=== PATIENT | female | born 1945 | race Caucasian/White ===

== ENCOUNTER 2018-03-21 05:49 | Day surgery (SDC) | payer MEDICARE ==
[~2018-03-21] VITALS: Ht 157.5 cm; Wt 62.1 kg
[~2018-03-21 05:49] MED LIST: MULT1TAB10 PO; PROBCAP4 PO
[2018-03-21] MEDS ORDERED: LR 1,000 ML IV ONE (06:00)
[2018-03-21] MEDS ORDERED: BUPIVACAINE/EPIN 0.25% 30 ML VIAL As Ordered ONE (07:15)
[2018-03-21] MEDS ORDERED: MIDAZOLAM INJ 2 MG/2 ML VIAL (J2250) As Ordered ONE (07:16)
[2018-03-21] MEDS ORDERED: LIDOCAINE 2% INJ 100 MG/5 ML SDV (FOR ANES.) As Ordered ONE (07:16)
[2018-03-21] MEDS ORDERED: PROPOFOL 200 MG/20 ML VIAL As Ordered ONE (07:16)
[2018-03-21] MEDS ORDERED: fentaNYL 100 MCG/2 ML INJECTION (J3010) As Ordered ONE (07:17)
--- NOTE | 2018-03-21 08:33 | RO ---
DATE OF PROCEDURE: 03/21/2018 PREOPERATIVE DIAGNOSIS: Left arm melanoma (malignant melanoma). POSTOPERATIVE DIAGNOSIS: Left arm melanoma (malignant melanoma). PROCEDURE: Wide excision of malignant melanoma. SURGEON: Frandy Iqbal Jr., MD FOOD AND BEVERAGE DIRECTOR: ANESTHESIA: General endotracheal anesthesia. BRIEF PROCEDURE SUMMARY: The patient was brought to the operating room was given IV sedation. After adequate IV sedation, the patient was prepped and draped in the usual sterile fashion. Next, local was infiltrated around the lesion itself. The skin had been marked giving adequate margins. This was an in situ lesion, thus 5 mm margins outside of the previous biopsy site, which was a 1 cm lesion, was performed, giving us a 2 cm wide area of excision. This resulted in a 10 cm long incision by a 2 cm wide defect. The skin incision was made with skin knife. Electrocautery was used cut through dermis, underlying subcutaneous tissue. The tissue was removed in its entirety using electrocautery and good hemostasis was achieved. Dermis was brought together with #3-0 Vicryl and #4-0 Vicryl was used to approximate the skin. Steri-Strips and dry sterile dressing was applied. The patient was awakened from the sedation brought to recovery room awake, alert, hemodynamically stable. Sponge and needle counts correct times two.
[2018-03-21 09:00] VITALS: BP 110/60
[2018-03-21] MEDS ORDERED: ONDANSETRON 4MG/2ML VIAL (J2405) IV PRN (09:15)
[2018-03-21] MEDS ORDERED: fentaNYL 100 MCG/2 ML INJECTION (J3010) IV PRN (09:15)
[2018-03-21] MEDS ORDERED: LR 1,000 ML IV SCH (09:15)
[2018-03-21] MEDS ORDERED: NORCO, ANEXSIA 5/325MG TABLET (HYDROcodone/ACETAMINOPHEN) PO PRN (09:15)
== END 2018-03-21 09:10 | disposition home or self-care (01) ==
LOC: M SDC 05:49
PROVIDERS: ATTEND Surgery
DX: C43.62 Malignant melanoma of left upper limb, including shoulder (principal); K58.9 Irritable bowel syndrome, unspecified; M81.0 Age-related osteoporosis without current pathological fracture; E04.1 Nontoxic single thyroid nodule; Z79.899 Other long term (current) drug therapy; Z87.891 Personal history of nicotine dependence; Z88.0 Allergy status to penicillin; Z88.2 Allergy status to sulfonamides; Z88.8 Allergy status to other drugs, medicaments and biological substances
CPT/HCPCS: 11606; 88305; J2250; J3010

== ENCOUNTER → 2019-10-06 | Outpatient (CLI) | payer MEDICARE ==
[~2019-10-06] MED LIST changes: +CVS1CAP2 PO; +CYAN1000VL PO; +HYDR12.55 PO; +IBAN150T6 PO; +K-TA10TA PO; +MULTCAP PO; +TRIA0.027 EXT
== END ==
LOC: M LABSMTC 09:47
PROVIDERS: ATTEND Anesthesiology
DX: Z01.812 Encounter for preprocedural laboratory examination (principal); Z20.828 Contact with and (suspected) exposure to other viral communicable diseases
CPT/HCPCS: C9803; U0003

== ENCOUNTER 2019-10-11 05:59 | Day surgery (SDC) | payer MEDICARE ==
[~2019-10-11] VITALS: Ht 157.5 cm; Wt 66.7 kg
[~2019-10-11 05:59] MED LIST changes: -CVS1CAP2 PO; -CYAN1000VL PO; -HYDR12.55 PO; -IBAN150T6 PO; -K-TA10TA PO; -MULTCAP PO; -TRIA0.027 EXT
[2019-10-11] MEDS ORDERED: LR 1,000 ML IV ONE (06:00)
[2019-10-11] MEDS ORDERED: TRIA0.027 EXT (06:24)
[2019-10-11] MEDS ORDERED: K-TA10TA PO (06:24)
[2019-10-11] MEDS ORDERED: MULTCAP PO (06:24)
[2019-10-11] MEDS ORDERED: IBAN150T6 PO (06:24)
[2019-10-11] MEDS ORDERED: CVS1CAP2 PO (06:24)
[2019-10-11] MEDS ORDERED: HYDR12.55 PO (06:24)
[2019-10-11] MEDS ORDERED: CYAN1000VL PO (06:24)
[2019-10-11] MEDS ORDERED: POVIDONE-IODINE 5% OPHTH PREP SOL 30ML As Ordered ONE (06:32)
[2019-10-11] MEDS ORDERED: BALANCED SALT IRRIGATION SOLUTION 500ML BAG (FOR OR EYE MACHINE) As Ordered ONE (06:33)
[2019-10-11] MEDS ORDERED: CEFUROXIME 1MG/0.1ML INTRACAMERAL INJ As Ordered ONE (06:33)
[2019-10-11] MEDS ORDERED: DUOVISC (0.50ML VISCOAT/0.55ML PROVISC) OPHTH KIT As Ordered ONE (06:33)
[2019-10-11] MEDS ORDERED: ACETYLCHOLINE OPHTH SOLN 1% 2ML (MIOCHOL-E) As Ordered ONE (06:36)
[2019-10-11] MEDS ORDERED: BSS IRR 500ML/OMIDRIA 4ML IRR BAG (OR ONLY) (J1097 PER ML) As Ordered ONE (06:46)
[2019-10-11] MEDS ORDERED: TROPICAMIDE 1% OPHTH SOLN 2ML OD ONE (07:00)
[2019-10-11] MEDS ORDERED: PHENYLEPHRINE 2.5% OPHTH SOL 2ML OD ONE (07:00)
[2019-10-11] MEDS ORDERED: PROPARACAINE 0.5% OPHTH SOL 15ML OD ONE (07:00)
[2019-10-11 08:30] VITALS: BP 132/76
[2019-10-11] MEDS ORDERED: fentaNYL 250 MCG/5 ML INJECTION (J3010) As Ordered ONE (09:32)
[2019-10-11] MEDS ORDERED: MIDAZOLAM INJ 2MG/2ML VIAL (J2250 PER 1MG) As Ordered ONE (09:32)
== END 2019-10-11 08:51 | disposition home or self-care (01) ==
LOC: M SDC 05:59
PROVIDERS: ATTEND Ophthalmology
DX: H25.11 Age-related nuclear cataract, right eye (principal); K57.92 Diverticulitis of intestine, part unspecified, without perforation or abscess without bleeding; K58.8 Other irritable bowel syndrome; Z79.899 Other long term (current) drug therapy; Z88.1 Allergy status to other antibiotic agents; Z88.2 Allergy status to sulfonamides; Z88.0 Allergy status to penicillin; Z87.891 Personal history of nicotine dependence; Z91.013 Allergy to seafood; Z91.041 Radiographic dye allergy status
CPT/HCPCS: 66982; 92015; J1097; J2250; J3010; L8699; V2632

== ENCOUNTER 2020-05-17 20:34 | Inpatient (IN) | payer MEDICARE ==
[~2020-05-17] VITALS: Ht 154.9 cm; Wt 63.9 kg
[~2020-05-17 20:34] MED LIST changes: +CVS1CAP2 PO; +CYAN1000VL PO; +HYDR12.55 PO; +IBAN150T6 PO; +K-TA10TA PO; +MULTCAP PO; +TRIA0.027 EXT
[2020-05-17] MEDS ORDERED: METO37.5 PO (20:47)
[2020-05-17] MEDS ORDERED: CLIN150C15 PO (20:47)
[2020-05-17] MEDS ORDERED: REST0.05 OU (20:47)
[2020-05-17] MEDS ORDERED: MORPHINE 2 MG/ML 1ML VIAL (J2270) IV ONE (21:05)
[2020-05-17] MEDS ORDERED: ONDANSETRON 4MG/2ML VIAL IV ONE (21:05)
[2020-05-17] MEDS ORDERED: NS 1,000 ML IV SCH (21:05)
[2020-05-17 21:48] LABS: BASO % 0.5 % (0.0-1.0); EOS # 0.1 10^3/uL (0.0-0.5); EOS % 1.4 % (0.0-3.0); HEMATOCRIT 43.8 % (36.0-47.0); HEMOGLOBIN 14.6 g/dl (12.0-15.5); LYMPH # 1.5 10^3/uL (1.5-5.0); LYMPH % 20.7 % (24.0-44.0); MEAN CORPUSCULAR HEMOGLOBIN 29.4 pg (27.0-33.0); MEAN CORPUSCULAR HGB CONC 33.3 g/dl (32.0-36.5); MEAN CORPUSCULAR VOLUME 88.3 fl (80.0-96.0); MONO # 0.9 10^3/uL (0.0-0.8); MONO % 11.6 % (2.0-8.0); NEUTROPHILS # 4.8 10^3/uL (1.5-8.5); NEUTROPHILS % 65.5 % (36.0-66.0); PLATELET COUNT, AUTOMATED 215 10^3/uL (150-450); RED BLOOD COUNT 4.96 10^6/uL (4.00-5.40); WHITE BLOOD COUNT 7.3 10^3/uL (4.0-10.0)
[2020-05-17] MEDS: GASTROGRAFIN SOLUTION 30ML PO SCH ×2 (22:01→22:35)
[2020-05-17 22:21] LABS: ALBUMIN 3.7 GM/DL (3.2-5.2); ALT/SGPT 34 U/L (12-78); BILIRUBIN,DIRECT 0.3 MG/DL (0.0-0.2); BILIRUBIN,TOTAL 1.2 MG/DL (0.2-1.0); BLOOD UREA NITROGEN 8 MG/DL (7-18); CARBON DIOXIDE LEVEL 27 MEQ/L (21-32); CHLORIDE LEVEL 102 MEQ/L (98-107); CREATININE FOR GFR 0.68 MG/DL (0.55-1.30); GLOMERULAR FILTRATION RATE > 60.0 (>39); GLUCOSE, FASTING 85 MG/DL (70-100); LIPASE 100 U/L (73-393); POTASSIUM SERUM 3.6 MEQ/L (3.5-5.1); SODIUM LEVEL 134 MEQ/L (136-145); TOTAL PROTEIN 7.9 GM/DL (6.4-8.2)
[2020-05-17] MEDS ORDERED: ISOVUE-370 76% 100ML VIAL As Ordered ONE (22:43)
--- NOTE | 2020-05-17 23:45 | REPVR ---
PROCEDURE INFORMATION: Exam: CT Abdomen And Pelvis With Contrast Exam date and time: 05/17/2020 10:56 PM Age: 74 years old Clinical indication: Abdominal pain; Localized; Left lower quadrant (llq); Additional info: Llq pain TECHNIQUE: Imaging protocol: Computed tomography of the abdomen and pelvis with contrast. Radiation optimization: All CT scans at this facility use at least one of these dose optimization techniques: automated exposure control; mA and/or kV adjustment per patient size (includes targeted exams where dose is matched to clinical indication); or iterative reconstruction. Contrast material: ISOVUE 370; Contrast volume: 100 ml; Contrast route: INTRAVENOUS (IV); COMPARISON: No relevant prior studies available. FINDINGS: Liver: Normal. No mass. Gallbladder and bile ducts: Cholecystectomy clips. Pancreas: Normal. No ductal dilation. Spleen: Normal. No splenomegaly. Adrenal glands: Normal. No mass. Kidneys and ureters: Normal. No hydronephrosis. Stomach and bowel: There is fat stranding around the proximal descending colon representing acute diverticulitis (series 201, image 56). Evidence of prior ascending colon surgery. Appendix: No evidence of appendicitis. Intraperitoneal space: Unremarkable. No free air. No significant fluid collection. Vasculature: Unremarkable. No abdominal aortic aneurysm. Lymph nodes: Unremarkable. No enlarged lymph nodes. Urinary bladder: Unremarkable as visualized. Reproductive: Unremarkable as visualized. Bones/joints: Unremarkable. No acute fracture. Soft tissues: Unremarkable. IMPRESSION: Acute diverticulitis of the proximal descending colon. No fluid collections/abscess. Electronically signed by: Earl Elise On 05/17/2020 23:45:49 PM
[2020-05-18] MEDS ORDERED: ERTAPENEM SODIUM 1 GM in NS MINI-BAG PLUS 50 ML IV ONE ×2
[2020-05-18] MEDS ORDERED: CLIN300C6 PO (00:16)
[2020-05-18] MEDS ORDERED: METO1TAB87 PO (00:16)
[2020-05-18] MEDS ORDERED: CYAN2500 SL (00:16)
[2020-05-18] MEDS ORDERED: PURE500C5 PO (00:16)
[2020-05-18] MEDS ORDERED: HYDR-3490 PO (00:16)
[2020-05-18] MEDS ORDERED: IBAN150T6 PO (00:16)
[2020-05-18] MEDS ORDERED: D31000TA2 PO (00:16)
[2020-05-18] MEDS ORDERED: MOM 30ML SUSPENSION UDC PO PRN (00:40)
[2020-05-18] MEDS ORDERED: ACETAMINOPHEN TAB 650MG DOSE (2X325MG) PO PRN (00:40)
[2020-05-18] MEDS ORDERED: MAALOX 30 ML SUSP *UDC PO PRN (00:40)
--- NOTE | 2020-05-18 00:51 | HPEPDOC ---
[facility] Medical History & Physical Date of Admission May 18, 2020 Date of Service: May 18, 2020 History and Physical CHIEF COMPLAINT: Abdominal pain HISTORY OF PRESENT ILLNESS: 74F PMHx HTN, IBS, who presents with abdominal pain. Patient tells me she was diagnosed with diverticulitis at an outside hospital in [place] 3 days ago and was discharged home on oral clindamycin which she took daily for 3 days but her abdominal pain symptoms have persisted. She tells me that her symptoms started on Tuesday, she presented to the outside hospital on , and she is now here with abdominal pain. Tells me about pain is in the left lower quadrant it does not radiate she rated it as 7 out of 10 initially but after morphine it is now 0 out of 10. Describes the pain as achy. Tells me she's had multiple episode of diverticulitis in the past approximately 4-5 times the last one being 2 years ago. She has a history of IBS and was following with a gastric source in [place] but was lost to follow-up. Tells me her now she has no abdominal pain at all she feels comfortable denies any nausea or vomiting denies fevers or chi lls denies chest pain or shortness of breath. CT abdomen 4/pelvis here confirms dermatitis. Given that she didn't improve with outpatient treatment with vancomycin and due to her multiple apparent drug allergies she'll be admitted to the medical service for management of diverticulitis and treated with IV ertapenem. PAST MEDICAL/SURGICAL HISTORY: Hypertension IBS Multiple episodes of diverticulitis in the past ~4-5x the last episode being 2 years ago Cholecystectomy Appendectomy Tubal ligation Partial colon resection "a long time ago" but cannot give me more details SOCIAL HISTORY: Endorses alcohol use but only socially Denies tobacco use currently tells me she quit over 30 years ago Denies illicit drug use FAMILY HISTORY: Tells me she doesn't know any of her family members and doesn't know their medical history. Tells me her children don't have any medical problems. ALLERGIES: Please see below. REVIEW OF SYSTEMS: 10 point review of systems complete all negative otherwise stated in HPI HOME MEDICATIONS: Please see below. PHYSICAL EXAMINATION: Constitutional: Awake and alert, in no apparent distress ENT: Sclera are clear. Mucosa is moist. Respiratory: Lungs CTA bilaterally. No respiratory distress. Cardiovascular: Regular rate and rhythm Gastrointestinal: Abdomen is soft, non distended, mildly tender to deep palpation of the left lower quadrant without rebound tenderness, BS present. Musculoskeletal: No lower extremity edema. Neurologic: No focal neurological deficit. Mental Status: A&O x3, normal affect Skin: Warm, dry LABORATORY DATA: See below. IMAGING: See chart MICROBIOLOGY: Please see below. ASSESSMENT/PLAN 74-year-old female history of hypertension admitted with diverticulitis with persistent abdominal pain having failed 3 days of outpatient treatment. # Diverticulitis: Admit to medical bed. CT abdomen/pelvis confirms diverticulitis. Appears to be a mild case she has no leukocytosis, currently abdominal pain is absent, no fever. Due to her multiple drug allergies she will be treated with ertapenem IV. Clear liquid diet advance as tolerated. # Hypertension: Continue home meds. Monitor and titrate # DVT prophylaxis: Lovenox A [facility] Hospitalist Vital Signs Vital Signs Date Time Temp Pulse Resp B/P (MAP) Pulse Ox O2 Delivery O2 Flow Rate FiO2 05/17/20 23:35 05/17/20 21:35 17 05/17/20 20:34 97.2 62 96 Room Air Laboratory Data Labs 24H Laboratory Tests 2 05/17/20 21:29: Immature Granulocyte % (Auto) 0.3, Neutrophils (%) (Auto) 65.5, Lymphocytes (%) (Auto) 20.7L, Monocytes (%) (Auto) 11.6H, Eosinophils (%) (Auto) 1.4, Basophils (%) (Auto) 0.5, Neutrophils # (Auto) 4.8, Lymphocytes # (Auto) 1.5, Monocytes # (Auto) 0.9H, Eosinophils # (Auto) 0.1, Basophils # (Auto) 0.0, Nucleated Red Blood Cells % (auto) 0.0, Anion Gap 5L, Glomerular Filtration Rate > 60.0, Calcium Level 9.0, Total Bilirubin 1.2H, Direct Bilirubin 0.3H, Aspartate Amino Transf (AST/SGOT) 27, Alanine Aminotransferase (ALT/SGPT) 34, Alkaline Phosphatase 58, Total Protein 7.9, Albumin 3.7, Albumin/Globulin Ratio 0.9L, Lipase 100 05/17/20 21:30: Urine Color STRAW, Urine Appearance CLEAR, Urine pH 7.0, Urine Specific [place] 1.002, Urine Protein NEGATIVE, Urine Glucose (UA) NEGATIVE, Urine Ketones TRACEH, Urine Blood NEGATIVE, Urine Nitrite NEGATIVE, Urine Bilirubin NEGATIVE, Urine Urobilinogen 0.2, Urine Leukocyte Esterase NEGATIVE, Urine WBC (Auto) 0, Urine RBC (Auto) 1, Urine Hyaline Casts (Auto) 0, Urine Bacteria (Auto) NEGATIVE, Urine Squamous Epithelial Cells 0, Urine Sperm (Auto) CBC/BMP Laboratory Tests 05/17/20 21:29 Home Medications Scheduled Ascorbic Acid (Vitamin C) 500 Mg Capsule.er, 500 MG PO DAILY Cholecalciferol (Vitamin D3) (Vitamin D3) 1,000 Unit Tablet, 2,000 UNITS PO DAILY Clindamycin HCl (Clindamycin HCl) 300 Mg Capsule, 300 MG PO QID STARTED 05/15/20 X 5 DAYS Cyanocobalamin (Vitamin B-12) (Vitamin B-12) 2,500 Mcg Tab.subl, 2,500 MCG SL DA ABDOULAYE Cyclosporine (Restasis) 0.05% Droperette, 1 DROP OU BID Hydrochlorothiazide (Hydrochlorothiazide) 25 Mg Tablet, 25 MG PO DAILY LUNCH TIME Ibandronate Sodium (Ibandronate Sodium) 150 Mg Tablet, 150 MG PO QMONTH Lactobacillus Combo No.10 (Probiotic) 1 Each Capsule, 1 CAP PO QHS Metoprolol Tartrate (Metoprolol Tartrate) 25 Mg Tablet, 25 MG PO DAILY Potassium Chloride (K-Tab ER) 10 Meq Tablet.er, 20 MEQ PO DAILY Allergies Coded Allergies: amoxicillin (Verified Allergy, Intermediate, RASH; N/V HIVES, 10/10/19) clavulanic acid (Verified Allergy, Intermediate, RASH; N/V HIVES, 10/10/19) sulfamethoxazole (Verified Allergy, Intermediate, RASH, HIVES, 10/10/19) trimethoprim (Verified Allergy, Intermediate, RASH, HIVES, 10/10/19) Cephalosporins (Verified Allergy, Mild, RASH, 10/10/19) ciprofloxacin (Verified Allergy, Mild, RASH, 10/10/19) metronidazole (Verified Allergy, Mild, RASH, 10/10/19) moxifloxacin (Verified Allergy, Mild, RASH, 05/17/20) A-FIB/CHADSVASC A-FIB History Current/History of A-Fib/PAF?: No DOMINIC ORTEGA MD May 18, 2020 00:51
[2020-05-18 01:28] LABS: RSV AMPLIFICATION NEGATIVE (NEGATIVE)
[2020-05-18 03:17] VITALS: BP 151/72
[2020-05-18] MEDS: DOCUSATE SODIUM 100MG CAPSULE PO SCH ×2 (03:30→08:02)
[2020-05-18 06:00] VITALS: BP 106/65
[2020-05-18 06:34] LABS: HEMATOCRIT 40.3 % (36.0-47.0); HEMOGLOBIN 13.5 g/dl (12.0-15.5); MEAN CORPUSCULAR HEMOGLOBIN 29.3 pg (27.0-33.0); MEAN CORPUSCULAR HGB CONC 33.5 g/dl (32.0-36.5); MEAN CORPUSCULAR VOLUME 87.6 fl (80.0-96.0); PLATELET COUNT, AUTOMATED 186 10^3/uL (150-450); WHITE BLOOD COUNT 5.3 10^3/uL (4.0-10.0)
[2020-05-18 06:55] LABS: BLOOD UREA NITROGEN 6 MG/DL (7-18); CARBON DIOXIDE LEVEL 26 MEQ/L (21-32); CHLORIDE LEVEL 108 MEQ/L (98-107); CREATININE FOR GFR 0.62 MG/DL (0.55-1.30); GLOMERULAR FILTRATION RATE > 60.0 (>39); GLUCOSE, FASTING 91 MG/DL (70-100); POTASSIUM SERUM 3.4 MEQ/L (3.5-5.1); SODIUM LEVEL 140 MEQ/L (136-145)
[2020-05-18] MEDS ORDERED: POTASSIUM CHLORIDE 10 MEQ SR TABLET PO ONE (07:15)
[2020-05-18] MEDS: METOPROLOL TART 25 MG TABLET PO SCH (08:00)
[2020-05-18] MEDS: ENOXAPARIN 40MG/0.4ML SYRINGE (J1650 PER 10MG) SC SCH (08:03)
[2020-05-18 14:00] VITALS: BP 116/72
[2020-05-18] MEDS ORDERED: DOCUSATE SODIUM 100MG CAPSULE PO PRN (14:40)
--- NOTE | 2020-05-18 14:46 | IPNPDOC ---
Text Note Date of Service The patient was seen on 05/18/20. NOTE Subjective: Patient stated that she has mild left lower quadrant pain. Also she stated she had a few bowel movements since yesterday evening with no blood Objective: GENERAL APPEARANCE: NAD HEENT: no scleral icterus, no JVD, EOMI CARDIOVASCULAR: S1S2 LUNGS: CTA ABDOMEN: Moderately tender in the left lower quadrant, no rebound MUSCULOSKELETAL: no cyanosis, no swelling INTEGUMENT: no generalized pallor NEUROLOGICAL: cranial nerve function from 2-12 intact intact, follows commands, speech not dysarthric ASSESSMENT/PLAN 74-year-old female history of hypertension admitted with diverticulitis with persistent abdominal pain having failed 3 days of outpatient treatment Acute diverticulitis Due to multiple allergies we started Ertapenem IV Full liquid diet Hypertension Continue home meds Hypokalemia Replaced VS,Fishbone, I+O VS, Fishbone, I+O Laboratory Tests 05/17/20 21:29 05/18/20 06:27 Vital Signs Date Time Temp Pulse Resp B/P (MAP) Pulse Ox O2 Delivery O2 Flow Rate FiO2 05/18/20 14:00 97.8 62 18 116/72 (87) 97 05/18/20 06:00 Room Air I&O- Last 24 Hours up to 6 AM 05/18/20 06:00 Intake Total 1250 ml Balance 1250 ml MAUREEN HELLER DO May 18, 2020 14:46
[2020-05-18] MEDS: LACTOBACILLUS ACIDOPHILUS CAP (BACID) PO SCH (20:08)
[2020-05-18] MEDS ORDERED: RAMELTEON 8 MG TAB (ROZEREM) PO PRN (21:40)
[2020-05-18 22:00] VITALS: BP 131/84
[2020-05-19] MEDS: ERTAPENEM SODIUM 1 GM in NS MINI-BAG PLUS 50 ML IV SCH ×2 (00:30→23:18)
[2020-05-19 06:00] VITALS: BP 108/59
[2020-05-19] MEDS ORDERED: POLYVINYL ALCOHOL OPHTH SOLN 15 ML(LIQUITEARS) OU PRN (09:00)
[2020-05-19] MEDS: ENOXAPARIN 40MG/0.4ML SYRINGE (J1650 PER 10MG) SC SCH (09:35)
[2020-05-19] MEDS: LACTOBACILLUS ACIDOPHILUS CAP (BACID) PO SCH ×2 (09:35→21:30)
[2020-05-19] MEDS: METOPROLOL TART 25 MG TABLET PO SCH (09:37)
[2020-05-19 10:29] LABS: BASO % 0.4 % (0.0-1.0); EOS # 0.1 10^3/uL (0.0-0.5); HEMATOCRIT 45.2 % (36.0-47.0); HEMOGLOBIN 14.7 g/dl (12.0-15.5); LYMPH % 19.2 % (24.0-44.0); MEAN CORPUSCULAR HEMOGLOBIN 29.1 pg (27.0-33.0); MEAN CORPUSCULAR HGB CONC 32.5 g/dl (32.0-36.5); MEAN CORPUSCULAR VOLUME 89.5 fl (80.0-96.0); MONO # 0.4 10^3/uL (0.0-0.8); MONO % 8.1 % (2.0-8.0); NEUTROPHILS # 3.6 10^3/uL (1.5-8.5); NEUTROPHILS % 70.9 % (36.0-66.0); PLATELET COUNT, AUTOMATED 212 10^3/uL (150-450); RED BLOOD COUNT 5.05 10^6/uL (4.00-5.40); WHITE BLOOD COUNT 5.1 10^3/uL (4.0-10.0)
[2020-05-19 11:08] LABS: ALBUMIN 3.5 GM/DL (3.2-5.2); ALT/SGPT 27 U/L (12-78); BILIRUBIN,TOTAL 0.8 MG/DL (0.2-1.0); BLOOD UREA NITROGEN 6 MG/DL (7-18); CALCIUM LEVEL 9.8 MG/DL (8.8-10.2); CARBON DIOXIDE LEVEL 30 MEQ/L (21-32); CHLORIDE LEVEL 103 MEQ/L (98-107); CREATININE FOR GFR 0.88 MG/DL (0.55-1.30); GLOMERULAR FILTRATION RATE > 60.0 (>39); GLUCOSE, FASTING 105 MG/DL (70-100); MAGNESIUM LEVEL 1.9 MG/DL (1.8-2.4); POTASSIUM SERUM 3.4 MEQ/L (3.5-5.1); SODIUM LEVEL 138 MEQ/L (136-145); TOTAL PROTEIN 7.3 GM/DL (6.4-8.2)
[2020-05-19 14:00] VITALS: BP 112/68
--- NOTE | 2020-05-19 18:19 | IPNPDOC ---
Text Note Date of Service The patient was seen on 05/19/20. NOTE Subjective: Patient stated that her abdominal pain resolved. No fever overnight. Patient tolerates soft mechanical diet today Objective: GENERAL APPEARANCE: NAD HEENT: no scleral icterus, no JVD, EOMI CARDIOVASCULAR: S1S2 LUNGS: CTA ABDOMEN: Mildly tender in the left lower quadrant, no rebound MUSCULOSKELETAL: no cyanosis, no swelling INTEGUMENT: no generalized pallor NEUROLOGICAL: cranial nerve function from 2-12 intact intact, follows commands, speech not dysarthric ASSESSMENT/PLAN 74-year-old female history of hypertension admitted with diverticulitis with persistent abdominal pain having failed 3 days of outpatient treatment Acute diverticulitis Due to multiple allergies we started Ertapenem IV day 2 Soft mechanical diet Hypertension Continue home meds Hypokalemia Replaced VS,Fishbone, I+O VS, Fishbone, I+O Laboratory Tests 05/19/20 10:09 Vital Signs Date Time Temp Pulse Resp B/P (MAP) Pulse Ox O2 Delivery O2 Flow Rate FiO2 05/19/20 14:00 97.8 64 18 112/68 (83) 93 Room Air I&O- Last 24 Hours up to 6 AM 05/19/20 06:00 Intake Total 1850 ml Balance 1850 ml MAUREEN HELLER DO May 19, 2020 18:19
[2020-05-19 22:00] VITALS: BP 111/68
[2020-05-20 06:00] VITALS: BP 109/9
[2020-05-20] MEDS: LACTOBACILLUS ACIDOPHILUS CAP (BACID) PO SCH (08:57)
[2020-05-20] MEDS: ENOXAPARIN 40MG/0.4ML SYRINGE (J1650 PER 10MG) SC SCH (08:58)
[2020-05-20 08:59] VITALS: BP 122/82
[2020-05-20] MEDS: METOPROLOL TART 25 MG TABLET PO SCH (08:59)
[2020-05-20] MEDS ORDERED: CLIN300C6 PO (10:24)
--- NOTE | 2020-05-20 18:40 | DS.PDOC ---
Discharge Summary General Date of Admission May 18, 2020 at 00:39 Date of Discharge 05/20/20 Discharge Summary PROCEDURES PERFORMED DURING STAY: [None]. ADMITTING DIAGNOSES: Acute diverticulitis Hypertension Hypokalemia DISCHARGE DIAGNOSES: Acute diverticulitis Hypertension Hypokalemia COMPLICATIONS/CHIEF COMPLAINT: Acute Diverticulitis. HISTORY OF PRESENT ILLNESS:74F PMHx HTN, IBS, who presents with abdominal pain. Patient tells me she was diagnosed with diverticulitis at an outside hospital in [place] 3 days ago and was discharged home on oral clindamycin which she took daily for 3 days but her abdominal pain symptoms have persisted. She tells me that her symptoms started on Tuesday, she presented to the outside hospital on , and she is now here with abdominal pain. Tells me about pain is in the left lower quadrant it does not radiate she rated it as 7 out of 10 initially but after morphine it is now 0 out of 10. Describes the pain as achy. Tells me she's had multiple episode of diverticulitis in the past approximately 4-5 times the last one being 2 years ago. She has a history of IBS and was following with a gastric source in [place] but was lost to follow-up. Tells me her now she has no abdominal pain at all she feels comfortable denies any nausea or vomiting denies fevers or chills denies chest pain or shortness of breath. CT abdomen 4/pelvis here confirms dermatitis. Given that she didn't improve with outpatient treatment with vancomycin and due to her multiple apparent drug allergies she'll be admitted to the medical service for management of diverticulitis and treated with IV ertapenem. HOSPITAL COURSE: During hospital stay following issue addressed Acute diverticulitis Due to multiple allergies we started Ertapenem IV day 3 Soft mechanical diet Hypertension Continue home meds Hypokalemia Replaced DISCHARGE MEDICATIONS: Please see below. ALLERGIES: Please see below. PHYSICAL EXAMINATION ON DISCHARGE: GENERAL APPEARANCE: NAD HEENT: no scleral icterus, no JVD, EOMI CARDIOVASCULAR: S1S2 LUNGS: CTA ABDOMEN: Mildly tender in the left lower quadrant, no rebound MUSCULOSKELETAL: no cyanosis, no swelling INTEGUMENT: no generalized pallor NEUROLOGICAL: cranial nerve function from 2-12 intact intact, follows commands, speech not dysarthric LABORATORY DATA: Please see below. IMAGING see above PROGNOSIS: Fair ACTIVITY: [As tolerated]. DIET: Soft mechanical one week DISCHARGE PLAN follow-up with PCP in 3-5 days DISPOSITION: 01 Home, Self-Care. ITEMS TO FOLLOWUP ON ON OUTPATIENT: Follow-up with GI team in 2 weeks for colonoscopy DISCHARGE CONDITION: [Stable]. TIME SPENT ON DISCHARGE: 40minutes. Vital Signs/I&Os Vital Signs Date Time Temp Pulse Resp B/P (MAP) Pulse Ox O2 Delivery O2 Flow Rate FiO2 05/20/20 08:59 77 122/82 05/20/20 06:00 98.0 18 98 05/19/20 14:00 Room Air I&O- Last 24 Hours up to 6 AM 05/20/20 06:00 Intake Total 2150 ml Output Total 0 ml Balance 2150 ml Discharge Medications Scheduled Ascorbic Acid (Vitamin C) 500 Mg Capsule.er, 500 MG PO DAILY, (Reported) Cholecalciferol (Vitamin D3) (Vitamin D3) 1,000 Unit Tablet, 2,000 UNITS PO DAILY, (Reported) Clindamycin HCl (Clindamycin HCl) 300 Mg Capsule, 300 MG PO QID STARTED 05/15/20 X 5 DAYS Cyanocobalamin (Vitamin B-12) (Vitamin B-12) 2,500 Mcg Tab.subl, 2,500 MCG SL DAILY, (Reported) Cyclosporine (Restasis) 0.05% Droperette, 1 DROP OU BID, (Reported) Hydrochlorothiazide (Hydrochlorothiazide) 25 Mg Tablet, 25 MG PO DAILY, (Reported) LUNCH TIME Ibandronate Sodium (Ibandronate Sodium) 150 Mg Tablet, 150 MG PO QMONTH, (Reported) Lactobacillus Combo No.10 (Probiotic) 1 Each Capsule, 1 CAP PO QHS, (Reported) Metoprolol Tartrate (Metoprolol Tartrate) 25 Mg Tablet, 25 MG PO DAILY, (Reported) Potassium Chloride (K-Tab ER) 10 Meq Tablet.er, 20 MEQ PO DAILY, (Reported) Allergies Coded Allergies: amoxicillin (Verified Allergy, Intermediate, RASH; N/V HIVES, 10/10/19) clavulanic acid (Verified Allergy, Intermediate, RASH; N/V HIVES, 10/10/19) sulfamethoxazole (Verified Allergy, Intermediate, RASH, HIVES, 10/10/19) trimethoprim (Verified Allergy, Intermediate, RASH, HIVES, 10/10/19) Cephalosporins (Verified Allergy, Mild, RASH, 10/10/19) ciprofloxacin (Verified Allergy, Mild, RASH, 10/10/19) metronidazole (Verified Allergy, Mild, RASH, 10/10/19) moxifloxacin (Verified Allergy, Mild, RASH, 05/17/20) MAUREEN HELLER DO May 20, 2020 18:40
== END 2020-05-20 11:30 | disposition home or self-care (01) | DRG 392 ==
LOC: M ED 20:34 → M ED INP 05-18 00:39 → M MSPAV 05-18 03:17
PROVIDERS: ADMIT Family Medicine; ATTEND Internal Medicine
DX: K57.32 Diverticulitis of large intestine without perforation or abscess without bleeding (principal); E87.6 Hypokalemia; I10 Essential (primary) hypertension; K58.9 Irritable bowel syndrome, unspecified; Z90.49 Acquired absence of other specified parts of digestive tract; Z87.891 Personal history of nicotine dependence; Z20.822 Contact with and (suspected) exposure to COVID-19; Z79.899 Other long term (current) drug therapy; Z88.1 Allergy status to other antibiotic agents; Z88.8 Allergy status to other drugs, medicaments and biological substances; Z97.8 Presence of other specified devices

== ENCOUNTER 2020-05-26 15:01 | Emergency (ER) | payer MEDICARE ==
[~2020-05-26] VITALS: Ht 152.4 cm; Wt 63.6 kg
[~2020-05-26 15:01] MED LIST changes: +CLIN150C15 PO; +CLIN300C6 PO; +CYAN2500 SL; +D31000TA2 PO; +HYDR-3490 PO; +METO1TAB87 PO; +METO37.5 PO; +PURE500C5 PO; +REST0.05 OU
[2020-05-26 17:13] LABS: BASO % 0.6 % (0.0-1.0); EOS # 0.1 10^3/uL (0.0-0.5); EOS % 0.9 % (0.0-3.0); HEMOGLOBIN 14.8 g/dl (12.0-15.5); LYMPH # 1.5 10^3/uL (1.5-5.0); LYMPH % 21.5 % (24.0-44.0); MEAN CORPUSCULAR HEMOGLOBIN 28.9 pg (27.0-33.0); MEAN CORPUSCULAR HGB CONC 32.9 g/dl (32.0-36.5); MEAN CORPUSCULAR VOLUME 87.9 fl (80.0-96.0); MONO # 0.7 10^3/uL (0.0-0.8); NEUTROPHILS # 4.7 10^3/uL (1.5-8.5); NEUTROPHILS % 66.4 % (36.0-66.0); PLATELET COUNT, AUTOMATED 224 10^3/uL (150-450); RED BLOOD COUNT 5.12 10^6/uL (4.00-5.40)
[2020-05-26 17:30] LABS: ALBUMIN 3.8 GM/DL (3.2-5.2); ALT/SGPT 28 U/L (12-78); BILIRUBIN,DIRECT 0.3 MG/DL (0.0-0.2); BILIRUBIN,TOTAL 1.3 MG/DL (0.2-1.0); BLOOD UREA NITROGEN 8 MG/DL (7-18); CALCIUM LEVEL 9.9 MG/DL (8.8-10.2); CARBON DIOXIDE LEVEL 30 MEQ/L (21-32); CHLORIDE LEVEL 99 MEQ/L (98-107); CREATININE FOR GFR 0.65 MG/DL (0.55-1.30); GLOMERULAR FILTRATION RATE > 60.0 (>39); GLUCOSE, FASTING 80 MG/DL (70-100); LIPASE 125 U/L (73-393); POTASSIUM SERUM 3.7 MEQ/L (3.5-5.1); SODIUM LEVEL 135 MEQ/L (136-145); TOTAL PROTEIN 8.1 GM/DL (6.4-8.2)
[2020-05-26] MEDS ORDERED: ERTAPENEM SODIUM 1 GM in NS MINI-BAG PLUS 50 ML IV ONE (17:30)
[2020-05-26] MEDS ORDERED: ISOVUE-370 76% 100ML VIAL As Ordered ONE (17:51)
--- NOTE | 2020-05-26 19:07 | REPVR ---
PROCEDURE INFORMATION: Exam: CT Abdomen And Pelvis With Contrast Exam date and time: 05/26/2020 5:19 PM Age: 74 years old Clinical indication: Abdominal pain; Additional info: Diverticulitis 05/17 worsenening pain llq unable to eat TECHNIQUE: Imaging protocol: Computed tomography of the abdomen and pelvis with contrast. Radiation optimization: All CT scans at this facility use at least one of these dose optimization techniques: automated exposure control; mA and/or kV adjustment per patient size (includes targeted exams where dose is matched to clinical indication); or iterative reconstruction. Contrast material: ISOVUE 370; Contrast volume: 100 ml; Contrast route: INTRAVENOUS (IV); COMPARISON: CT ABD/PEL W/IV ORAL CONTRAS 05/17/2020 10:53 PM FINDINGS: Lungs: Clear appearing lung bases. Heart: The heart is normal in size and there is no pericardial effusion. Liver: Normal appearing liver. Gallbladder and bile ducts: There are surgical clips at the gallbladder fossa and the patient is post cholecystectomy. Normal common bile duct. Pancreas: Normal pancreas. Spleen: Normal spleen. Adrenal glands: Normal adrenal glands. Kidneys and ureters: There is enhancement of both kidneys there is no evidence of hydronephrosis. Stomach and bowel: Some hazy increased density of the splenic flexure of the colon similar to the examination 05/17/2020 and no evidence abscess. Previous removal of the right colon. Intraperitoneal space: There is no evidence of pneumoperitoneum. There is no evidence of significant free fluid in the abdomen or the pelvis. Vasculature: There is opacification of the aorta with calcified atherosclerotic plaque formation. Lymph nodes: No significant lymphadenopathy. Urinary bladder: Normal appearing urinary bladder. Reproductive: Normal appearing uterus. Normal-sized ovaries. Bones/joints: There is moderate broad-based disc protrusion L4-L5 and L5-S1. Soft tissues: There is no evidence of soft tissue abnormality. IMPRESSION: 1. Mild hazy increased density at the splenic flexure unchanged which may be mild inflammation. 2. Postoperative changes right upper quadrant. Electronically signed by: Skyler Bridges On 05/26/2020 19:07:27 PM
[2020-05-26 19:21] VITALS: BP 115/61
[2020-05-26] MEDS ORDERED: TRAM50TA2 PO (20:08)
--- NOTE | 2020-05-29 09:24 | ED PDOC ---
Post-Departure Follow-Up radiology report faxed to Katie Richard Sarah MD May 29, 2020 09:24
== END 2020-05-26 20:21 | disposition home or self-care (01) ==
LOC: M ED 15:01
DX: R10.30 Lower abdominal pain, unspecified (principal); Z87.19 Personal history of other diseases of the digestive system; I10 Essential (primary) hypertension; I48.91 Unspecified atrial fibrillation; F41.9 Anxiety disorder, unspecified; M81.0 Age-related osteoporosis without current pathological fracture; K21.9 Gastro-esophageal reflux disease without esophagitis; Z79.899 Other long term (current) drug therapy; Z88.0 Allergy status to penicillin; Z88.1 Allergy status to other antibiotic agents; Z88.2 Allergy status to sulfonamides; Z88.8 Allergy status to other drugs, medicaments and biological substances; Z87.891 Personal history of nicotine dependence
CPT/HCPCS: 74177; 80048; 80076; 81001; 83605; 83690; 85025; 96360; 99284; J1335; Q9967

== ENCOUNTER → 2021-11-02 | Outpatient (CLI) | payer MEDICARE ==
[~2021-11-02] MED LIST changes: +CLIN-250 PO; -CLIN150C15 PO; +CLIN150C17 PO; -CLIN300C6 PO; -D31000TA2 PO; +ISOVUE-300 61% 50ML VIAL As Ordered ONE; +LIDOCAINE 1% MDV 20ML VIAL As Ordered ONE; +PROHANCE 279.3MG/ML 5ML VIAL As Ordered ONE; +TRAM50TA2 PO; +VITA100093 PO
== END ==
LOC: M RADPRO 06:20
PROVIDERS: ATTEND Physician Assistant Surgical
DX: S46.011A Strain of muscle(s) and tendon(s) of the rotator cuff of right shoulder, initial encounter (principal); X58.XXXA Exposure to other specified factors, initial encounter; Y92.9 Unspecified place or not applicable
CPT/HCPCS: 23350; 73223; 77002; A9576; Q9967

== ENCOUNTER → 2022-03-17 | Outpatient (CLI) | payer MEDICARE, MEDICAID ==
[~2022-03-17] MED LIST changes: +ASCO500C3 PO; -ISOVUE-300 61% 50ML VIAL As Ordered ONE; -LIDOCAINE 1% MDV 20ML VIAL As Ordered ONE; -PROHANCE 279.3MG/ML 5ML VIAL As Ordered ONE; -PURE500C5 PO
== END ==
LOC: M WHC 11:13
PROVIDERS: ATTEND Physician Assistant Medical
DX: E04.0 Nontoxic diffuse goiter (principal); M81.0 Age-related osteoporosis without current pathological fracture; M85.851 Other specified disorders of bone density and structure, right thigh; M85.852 Other specified disorders of bone density and structure, left thigh; M85.89 Other specified disorders of bone density and structure, multiple sites

== ENCOUNTER → 2023-03-24 | Outpatient (CLI) | payer MEDICARE, MEDICAID ==
[~2023-03-24] MED LIST changes: -K-TA10TA PO; +POTA-164 PO
== END ==
LOC: M RAD 11:53
PROVIDERS: ATTEND Internal Medicine Endocrinology, Diabetes & Metabolism
DX: E04.2 Nontoxic multinodular goiter (principal)

== ENCOUNTER → 2023-03-30 | Outpatient (CLI) | payer MEDICARE, MEDICAID | LOC: M RAD 12:26 | PROVIDERS: ATTEND Otolaryngology | DX: R22.1 Localized swelling, mass and lump, neck (principal) ==

== ENCOUNTER 2023-08-19 01:22 | Inpatient (IN) | payer MEDICARE, MEDICAID ==
[~2023-08-19] VITALS: Ht 157.5 cm; Wt 59.4 kg
[2023-08-19] MEDS: methylPREDNISolone 125MG 2ML VIAL IM ONE (04:41)
[2023-08-19] MEDS: KETOROLAC 60MG 2ML VIAL IM ONE (04:42)
[2023-08-19 05:06] LABS: BASO % 0.2 % (0.0-1.0); EOS % 0.3 % (0.0-3.0); HEMATOCRIT 40.7 % (36.0-47.0); HEMOGLOBIN 14.5 g/dl (12.0-15.5); LYMPH # 0.8 10^3/uL (1.5-5.0); LYMPH % 8.6 % (24.0-44.0); MEAN CORPUSCULAR HGB CONC 35.6 g/dl (32.0-36.5); MEAN CORPUSCULAR VOLUME 87.2 fl (80.0-96.0); MONO # 0.7 10^3/uL (0.0-0.8); MONO % 7.6 % (2.0-8.0); NEUTROPHILS # 8.1 10^3/uL (1.5-8.5); PLATELET COUNT, AUTOMATED 162 10^3/uL (150-450); RED BLOOD COUNT 4.67 10^6/uL (4.00-5.40); WHITE BLOOD COUNT 9.7 10^3/uL (4.0-10.0)
[2023-08-19] MEDS: FOSFOMYCIN TROMETHAMINE 3 GM POWDER PACKET (MONUROL) PO ONE (05:11)
[2023-08-19 05:40] LABS: BLOOD UREA NITROGEN 9 MG/DL (9-23); CALCIUM LEVEL 8.8 MG/DL (8.3-10.6); CARBON DIOXIDE LEVEL 28 MMOL/L (20-31); CHLORIDE LEVEL 93 MMOL/L (98-107); CREATININE FOR GFR 0.63 MG/DL (0.55-1.30); GLOMERULAR FILTRATION RATE > 60.0 (>39); GLUCOSE, FASTING 88 MG/DL (74-106); POTASSIUM SERUM 3.4 MMOL/L (3.5-5.1); SODIUM LEVEL 126 MMOL/L (136-145)
[2023-08-19] MEDS: MORPHINE 2 MG/ML 1ML VIAL IV ONE (07:58)
[2023-08-19] MEDS ORDERED: PANT40TA29 PO (08:39)
[2023-08-19] MEDS ORDERED: ASCO500T PO (08:39)
[2023-08-19] MEDS ORDERED: POTA20PW PO (08:39)
[2023-08-19] MEDS ORDERED: TIZA10TA PO (08:39)
[2023-08-19] MEDS ORDERED: HOME MED LIST COMPLETE! XX SCH (08:40)
[2023-08-19] MEDS ORDERED: MORPHINE 2 MG/ML 1ML VIAL IV PRN (09:10)
[2023-08-19] MEDS: NS 1,000 ML IV SCH (09:28)
[2023-08-19] MEDS: METOPROLOL TART 12.5 MG PER 1/2 TAB PO SCH (09:29)
[2023-08-19] MEDS: ONDANSETRON 4MG 2ML VIAL IV PRN (09:30)
[2023-08-19] MEDS: PANTOPRAZOLE 40MG TAB (PROTONIX) PO SCH (09:30)
[2023-08-19] MEDS: POTASSIUM CHLORIDE 10MEQ SR TABLET PO ONE (09:30)
[2023-08-19 11:09] LABS: BLOOD UREA NITROGEN 9 MG/DL (9-23); CALCIUM LEVEL 8.8 MG/DL (8.3-10.6); CARBON DIOXIDE LEVEL 25 MMOL/L (20-31); CHLORIDE LEVEL 92 MMOL/L (98-107); CREATININE FOR GFR 0.61 MG/DL (0.55-1.30); GLOMERULAR FILTRATION RATE > 60.0 (>39); GLUCOSE, FASTING 158 MG/DL (74-106); POTASSIUM SERUM 3.4 MMOL/L (3.5-5.1); SODIUM LEVEL 125 MMOL/L (136-145)
[2023-08-19 11:38] VITALS: BP 115/94; TEMP 97.6; O2SAT 100
[2023-08-19] MEDS: MELOXICAM (MOBIC) 7.5 MG TAB PO SCH (12:28)
[2023-08-19] MEDS: ENOXAPARIN 40MG/0.4ML SYRINGE (J1650 PER 10MG) SC SCH (15:57)
[2023-08-19 16:08] VITALS: BP 114/66; TEMP 98.2; O2SAT 95
[2023-08-19 17:20] LABS: BLOOD UREA NITROGEN 10 MG/DL (9-23); CALCIUM LEVEL 9.1 MG/DL (8.3-10.6); CARBON DIOXIDE LEVEL 22 MMOL/L (20-31); CHLORIDE LEVEL 99 MMOL/L (98-107); CREATININE FOR GFR 0.64 MG/DL (0.55-1.30); GLOMERULAR FILTRATION RATE > 60.0 (>39); GLUCOSE, FASTING 161 MG/DL (74-106); POTASSIUM SERUM 4.4 MMOL/L (3.5-5.1); SODIUM LEVEL 130 MMOL/L (136-145)
[2023-08-19 19:20] VITALS: BP 110/64; TEMP 97.7; O2SAT 95
[2023-08-19] MEDS: tiZANidine 4 MG TAB PO SCH (20:49)
[2023-08-19] MEDS: PERCOCET 5MG/325MG TAB PO PRN (20:49)
[2023-08-19 23:50] VITALS: BP 106/63; TEMP 97.9; O2SAT 95
[2023-08-20 04:40] VITALS: BP 93/57; TEMP 97.7; O2SAT 96
[2023-08-20 06:35] LABS: HEMATOCRIT 36.1 % (36.0-47.0); HEMOGLOBIN 12.6 g/dl (12.0-15.5); MEAN CORPUSCULAR HEMOGLOBIN 31.1 pg (27.0-33.0); MEAN CORPUSCULAR HGB CONC 34.9 g/dl (32.0-36.5); MEAN CORPUSCULAR VOLUME 89.1 fl (80.0-96.0); PLATELET COUNT, AUTOMATED 173 10^3/uL (150-450); RED BLOOD COUNT 4.05 10^6/uL (4.00-5.40); WHITE BLOOD COUNT 11.7 10^3/uL (4.0-10.0)
[2023-08-20 06:54] LABS: BLOOD UREA NITROGEN 15 MG/DL (9-23); CALCIUM LEVEL 8.1 MG/DL (8.3-10.6); CARBON DIOXIDE LEVEL 25 MMOL/L (20-31); CHLORIDE LEVEL 106 MMOL/L (98-107); CREATININE FOR GFR 0.72 MG/DL (0.55-1.30); GLOMERULAR FILTRATION RATE > 60.0 (>39); GLUCOSE, FASTING 100 MG/DL (74-106); POTASSIUM SERUM 4.4 MMOL/L (3.5-5.1); SODIUM LEVEL 135 MMOL/L (136-145)
[2023-08-20 07:48] VITALS: BP 94/57; TEMP 97.5; O2SAT 94
[2023-08-20] MEDS: ASCORBIC ACID 500 MG TAB PO SCH (08:58)
[2023-08-20] MEDS: VITAMIN D 1,000 INTERNATIONAL UNITS TABLET PO SCH (08:58)
[2023-08-20 09:00] VITALS: BP 96/54
[2023-08-20 10:35] LABS: FREE T4 1.23 NG/DL (0.89-1.76)
[2023-08-20] MEDS: ACETAMINOPHEN TAB 650MG DOSE (2X325MG) PO PRN (10:39)
[2023-08-20 11:42] VITALS: BP 121/70; TEMP 98.2; O2SAT 95
[2023-08-20 16:13] VITALS: BP 120/71; TEMP 97; O2SAT 98
[2023-08-20 20:37] VITALS: BP 119/70; TEMP 97.7; O2SAT 96
[2023-08-21 04:00] VITALS: BP 101/64; TEMP 97.9; O2SAT 98
[2023-08-21 06:58] LABS: HEMATOCRIT 37.2 % (36.0-47.0); HEMOGLOBIN 12.6 g/dl (12.0-15.5); MEAN CORPUSCULAR HEMOGLOBIN 30.9 pg (27.0-33.0); MEAN CORPUSCULAR HGB CONC 33.9 g/dl (32.0-36.5); MEAN CORPUSCULAR VOLUME 91.2 fl (80.0-96.0); PLATELET COUNT, AUTOMATED 166 10^3/uL (150-450); RED BLOOD COUNT 4.08 10^6/uL (4.00-5.40); WHITE BLOOD COUNT 7.1 10^3/uL (4.0-10.0)
[2023-08-21 07:20] LABS: BLOOD UREA NITROGEN 15 MG/DL (9-23); CALCIUM LEVEL 8.6 MG/DL (8.3-10.6); CARBON DIOXIDE LEVEL 27 MMOL/L (20-31); CHLORIDE LEVEL 109 MMOL/L (98-107); CREATININE FOR GFR 0.76 MG/DL (0.55-1.30); GLOMERULAR FILTRATION RATE > 60.0 (>39); GLUCOSE, FASTING 76 MG/DL (74-106); POTASSIUM SERUM 4.8 MMOL/L (3.5-5.1); SODIUM LEVEL 138 MMOL/L (136-145)
[2023-08-21 07:42] VITALS: BP 120/74; TEMP 97.7; O2SAT 93
[2023-08-21 08:17] VITALS: BP 120/74
[2023-08-21] MEDS: NITROFURANTOIN (MACROBID) 100 MG CAP PO SCH (09:34)
[2023-08-21] MEDS ORDERED: MACR100C43 PO (10:41)
== END 2023-08-21 12:41 | disposition home or self-care (01) | DRG 641 ==
LOC: M ED 01:22 → M ED INP 09:07 → M MSPAV 11:53
PROVIDERS: ADMIT Preventive Medicine Undersea and Hyperbaric Medicine; ATTEND Family Medicine
DX: E87.1 Hypo-osmolality and hyponatremia (principal); N39.0 Urinary tract infection, site not specified; E87.6 Hypokalemia; T50.2X5A Adverse effect of carbonic-anhydrase inhibitors, benzothiadiazides and other diuretics, initial encounter; M54.50 Low back pain, unspecified; R63.0 Anorexia; R11.0 Nausea; R53.83 Other fatigue; I10 Essential (primary) hypertension; M25.552 Pain in left hip; B96.20 Unspecified Escherichia coli [E. coli] as the cause of diseases classified elsewhere; Z79.899 Other long term (current) drug therapy; Z88.0 Allergy status to penicillin; Z88.1 Allergy status to other antibiotic agents; Z88.8 Allergy status to other drugs, medicaments and biological substances

== ENCOUNTER 2023-09-14 00:46 | Emergency (ER) | payer MEDICARE, MEDICAID ==
[~2023-09-14] VITALS: Ht 157.5 cm; Wt 57.7 kg
[~2023-09-14 00:46] MED LIST changes: +ASCO500T PO; +MACR100C43 PO; +PANT40TA29 PO; +POTA20PW PO; +TIZA10TA PO
[2023-09-14] MEDS ORDERED: KETOROLAC 30 MG/ML 1ML VIAL IM ONE (06:40)
[2023-09-14] MEDS ORDERED: predniSONE 20 MG TAB PO ONE (06:40)
[2023-09-14] MEDS: methylPREDNISolone 125MG 2ML VIAL IV ONE (06:50)
[2023-09-14] MEDS: KETOROLAC 30 MG/ML 1ML VIAL IV ONE (06:51)
[2023-09-14 06:58] LABS: BASO % 0.5 % (0.0-1.0); EOS # 0.1 10^3/uL (0.0-0.5); EOS % 2.7 % (0.0-3.0); HEMATOCRIT 40.6 % (36.0-47.0); HEMOGLOBIN 13.5 g/dl (12.0-15.5); LYMPH # 1.1 10^3/uL (1.5-5.0); MEAN CORPUSCULAR HEMOGLOBIN 30.8 pg (27.0-33.0); MEAN CORPUSCULAR HGB CONC 33.3 g/dl (32.0-36.5); MEAN CORPUSCULAR VOLUME 92.7 fl (80.0-96.0); MONO # 0.5 10^3/uL (0.0-0.8); MONO % 10.6 % (2.0-8.0); NEUTROPHILS # 2.7 10^3/uL (1.5-8.5); PLATELET COUNT, AUTOMATED 174 10^3/uL (150-450); RED BLOOD COUNT 4.38 10^6/uL (4.00-5.40); WHITE BLOOD COUNT 4.4 10^3/uL (4.0-10.0)
[2023-09-14 07:33] LABS: ALBUMIN 3.4 G/DL (3.2-5.2); ALKALINE PHOSPHATASE 50 U/L (46-116); ALT/SGPT 38 U/L (7.0-40); AST/SGOT 35 U/L (<34); BILIRUBIN,TOTAL 0.7 MG/DL (0.3-1.2); BLOOD UREA NITROGEN 11 MG/DL (9-23); CALCIUM LEVEL 8.5 MG/DL (8.3-10.6); CARBON DIOXIDE LEVEL 27 MMOL/L (20-31); CHLORIDE LEVEL 111 MMOL/L (98-107); CREATININE FOR GFR 0.64 MG/DL (0.55-1.30); GLOMERULAR FILTRATION RATE > 60.0 (>39); GLUCOSE, FASTING 77 MG/DL (74-106); SODIUM LEVEL 141 MMOL/L (136-145); TOTAL PROTEIN 6.5 G/DL (5.7-8.2)
[2023-09-14] MEDS ORDERED: PRED20TA PO (08:07)
[2023-09-14 08:15] VITALS: O2SAT 99
[2023-09-14 08:29] VITALS: BP 135/98; TEMP 98.1
== END 2023-09-14 08:46 | disposition home or self-care (01) ==
LOC: M ED 00:46 → EDBD 00:46 → M ED 08:46
DX: M47.896 Other spondylosis, lumbar region (principal); M41.86 Other forms of scoliosis, lumbar region; I10 Essential (primary) hypertension; Z87.891 Personal history of nicotine dependence; Z88.1 Allergy status to other antibiotic agents; Z88.2 Allergy status to sulfonamides; Z88.8 Allergy status to other drugs, medicaments and biological substances; Z79.899 Other long term (current) drug therapy; Z79.52 Long term (current) use of systemic steroids
CPT/HCPCS: 80053; 81001; 85025; 96374; 96375; 99284; J1885; J2919

== ENCOUNTER → 2023-10-12 | Outpatient (CLI) | payer MEDICARE, MEDICAID ==
[~2023-10-12] MED LIST changes: +PRED20TA PO
== END ==
LOC: M PLAIMG 08:43
PROVIDERS: ATTEND Physician Assistant Medical
DX: M54.50 Low back pain, unspecified (principal)